=== PATIENT | female | born 1980 | race Caucasian/White ===

== ENCOUNTER → 2023-03-18 13:37 | Outpatient (BNVA) | payer OTHER, SELFPAY | PROVIDERS: PCP Family Medicine; Visit Provider Family Medicine | DX: M25.519 Pain in unspecified shoulder (principal); Z13.6 Encounter for screening for cardiovascular disorders; R53.83 Other fatigue | CPT/HCPCS: 80053; 80061; 84443; 85025; 85651; 86038; 86140; 86200; 86431 ==

== ENCOUNTER 2023-03-30 15:11 | Outpatient (CLI) | payer OTHER, SELFPAY ==
--- NOTE | 2023-03-30 15:22 | MM_ITS ---
WS: [id number] BILATERAL 3D TOMOSYNTHESIS DIGITAL SCREENING MAMMOGRAPHY WITH CAD CLINICAL INFORMATION: SCREEN HISTORY: Screening mammogram. No current complaints. COMPARISON: None. TECHNIQUE: Bilateral CC and MLO views. FINDINGS: The breasts are composed of nodular heterogeneous fibroglandular density tissue, which can limit the detection of small underlying mass lesions. No suspicious mass, asymmetry, calcifications, or archite ctural distortion. No evidence of malignancy. MM/[id number] IMPRESSION: BI-RADS: 2-Benign FOLLOW UP: 1 Year Follow-up Recommend return to annual screening mammography.
== END 2023-03-30 15:12 | disposition home or self-care (01) ==
LOC: RAD 15:15
PROVIDERS: PCP Family Medicine; Visit Provider Family Medicine
DX: Z12.31 Encounter for screening mammogram for malignant neoplasm of breast (principal)
CPT/HCPCS: 77063; 77067

== ENCOUNTER 2023-08-30 11:44 | Outpatient (CLI) | payer OTHER, SELFPAY ==
--- NOTE | 2023-08-30 12:20 | XR_ITS ---
WS: [email or web address] Left shoulder, 2 views, 08/30/2023 Clinical Data: Z79.899 - Other snf (current) drug therapy Comparison: None. Findings: No fractures or dislocations are seen. The AC joint is normal. The adjacent left clavicle, left scapu la and ribs are normal. The soft tissues are unremarkable. Impression: Negative left shoulder.
--- NOTE | 2023-08-30 12:20 | XR_ITS ---
WS: [email or web address] Right shoulder, 2 views, 08/30/2023 Clinical Data: Z79.899 - Other local [employer] (current) drug therapy Comparison: None. Findings: No fractures or dislocations are seen. The AC joint is normal. The adjacent right clavicle, right sca pula and ribs are normal. The soft tissues are unremarkable. Impression: Negative right shoulder.
--- NOTE | 2023-08-30 12:20 | XR_ITS ---
WS: [email or web address] Pelvis, AP view, 08/30/2023 Clinical Data: Z79.899 - Other half-way (current) drug therapy Comparison: None. Findings: No fractures or dislocations are seen. The SI joints and pubic symphysis are intact. The soft tissues are not remarkable. There are acetabular lips bilaterally. Phleboliths are in the true pelvis. Impression: Minimal acetabular lipping of both hips.
[2023-08-30 12:41] LABS: Basophils # 0.1 10^3/uL (0.0-0.1); Basophils % 0.5 %; Eosinophils % 0.1 %; Hematocrit 41.2 % (36-47); Lymphocytes # 1.8 10^3/uL (0.8-4.8); Lymphocytes % 17.4 %; Mean Corpuscular HGB Conc 32.3 g/dL (30-55); Mean Corpuscular Volume 89.8 fl (85-98); Monocytes # 0.3 10^3/uL (0.2-0.9); Monocytes % 2.8 %; Neutrophils # 8.03 10^3/uL (1.8-7.7); Neutrophils % 78.8 %; Nucleated Red Blood Cells % 0 %; Platelet Count 279 10^3/cmm (157-399); Red Blood Count 4.59 10^6/uL (3.85-5.65); Red Cell Distribution Width 12.5 % (12.1-15.1); White Blood Count 10.18 10^3/uL (3.29-11.43)
[2023-08-30 12:47] LABS: Erythrocyte Sedimentation Rate 9 mm/hr (0-15)
[2023-08-30 13:08] LABS: Alanine Aminotransferase 20 U/L (0-33); Alkaline Phosphatase 103 U/L (35-105); Aspartate Amino Transferase 15 U/L (0-32); C Reactive Protein 7.4 mg/L (0.0-4.9); Globulin 2.8 g/dL (1.3-4.6); Glomerular Filtration Rate 90.9 mL/min (90-130); Total Bilirubin 0.4 mg/dL (0.15-1.2); Total Protein 6.8 g/dL (6.6-8.7)
[2023-08-30 13:14] LABS: Hepatitis C Virus Antibody Non-Reactive (Nonreactive)
[2023-08-31 13:24] LABS: COMPLEMENT COMPONENT C3C 173 mg/dL (83-193); COMPLEMENT COMPONENT C4C 33 mg/dL (15-57)
[2023-08-31 14:24] LABS: CENTROMERE B ANTIBODY <1.0 NEG AI (<1.0 NEG); COMPLEMENT, TOTAL (CH50) >60 U/mL (31-60); JO-1 ANTIBODY <1.0 NEG AI (<1.0 NEG); RNP ANTIBODY <1.0 NEG AI (<1.0 NEG); SCL-70 ANTIBODY <1.0 NEG AI (<1.0 NEG); SJOGREN'S ANTIBODY (SS-A) <1.0 NEG AI (<1.0 NEG); SM ANTIBODY <1.0 NEG AI (<1.0 NEG); SS-B <1.0 NEG AI (<1.0 NEG)
[2023-08-31 22:18] LABS: HLA-B27 NEGATIVE (NEGATIVE)
[2023-09-01 10:31] LABS: THYROID PEROXIDASE ANTIBODIES <1 IU/mL (<9)
[2023-09-01 10:42] LABS: ANA SCREEN, IFA NEGATIVE (NEGATIVE)
[2023-09-01 16:09] LABS: Quantiferon Mitogen 8.15 IU/mL; Quantiferon Nil 0.03 IU/mL; Quantiferon Plus TB1 0.01 IU/mL; Quantiferon Plus TB2 0.01 IU/mL; Quantiferon TB Gold NEGATIVE (NEGATIVE)
[2023-09-02 08:13] LABS: Thyroglobulin AB <1 IU/mL (< or = 1)
[2023-09-05 17:15] LABS: DNA AB (DS) CRITHIDIA,IFA NEGATIVE (NEGATIVE)
[2023-09-07 13:49] LABS: 14.3.3 ETA Protein <0.2 ng/mL (<0.2)
== END 2023-08-30 11:45 | disposition home or self-care (01) ==
LOC: LAB 11:45
PROVIDERS: PCP Family Medicine; Visit Provider Internal Medicine Rheumatology
DX: M19.90 Unspecified osteoarthritis, unspecified site (principal); Z79.899 Other long term (current) drug therapy; Z11.1 Encounter for screening for respiratory tuberculosis; R76.8 Other specified abnormal immunological findings in serum; Z11.59 Encounter for screening for other viral diseases; M45.6 Ankylosing spondylitis lumbar region
CPT/HCPCS: 72170; 73030; 80076; 82565; 83520; 85025; 85651; 86140; 86160; 86162; 86235; 86255; 86376; 86480; 86800; 86803; 86812

== ENCOUNTER → 2025-03-12 15:30 | Outpatient (BNVA) | payer OTHER, SELFPAY | PROVIDERS: PCP Family Medicine; Visit Provider Student in an Organized Health Care Education/Training Program | DX: M25.512 Pain in left shoulder (principal); M75.42 Impingement syndrome of left shoulder; M25.511 Pain in right shoulder; G89.29 Other chronic pain | CPT/HCPCS: 73030 ==

== ENCOUNTER 2025-06-12 06:49 | Outpatient (CLI) | payer OTHER, SELFPAY ==
[2025-06-12 07:46] LABS: Alanine Aminotransferase 23 U/L (0-33); Albumin Level 3.7 g/dL (3.5-5.2); Alkaline Phosphatase 84 U/L (35-105); Aspartate Amino Transferase 21 U/L (0-32); Globulin 2.7 g/dL (1.3-4.6); Total Protein 6.4 g/dL (6.6-8.7)
== END 2025-06-12 06:50 | disposition home or self-care (01) ==
LOC: LAB 06:50
PROVIDERS: PCP Family Medicine; Visit Provider Internal Medicine Rheumatology
DX: R74.8 Abnormal levels of other serum enzymes (principal)
CPT/HCPCS: 36415; 80076

== ENCOUNTER 2025-08-14 07:01 | Outpatient (CLI) | payer OTHER, SELFPAY ==
[2025-08-14 07:27] LABS: Hematocrit 41.3 % (36-47); Hemoglobin 13.20 g/dL (11.27-16.99); Mean Corpuscular HGB Conc 32.0 g/dL (30-55); Mean Corpuscular Hemoglobin 28.3 pg (27-33); Mean Corpuscular Volume 88.6 fl (85-98); Nucleated Red Blood Cells % 0 %; Platelet Count 199 10^3/cmm (157-399); Red Blood Count 4.66 10^6/uL (3.85-5.65); White Blood Count 6.03 10^3/uL (3.29-11.43)
[2025-08-14 07:47] LABS: Alanine Aminotransferase 23 U/L (0-33); Albumin Level 4.3 g/dL (3.5-5.2); Alkaline Phosphatase 90 U/L (35-105); Aspartate Amino Transferase 19 U/L (0-32); Globulin 2.7 g/dL (1.3-4.6); Total Protein 7.0 g/dL (6.6-8.7)
== END 2025-08-14 07:02 | disposition home or self-care (01) ==
PROVIDERS: PCP Family Medicine; Visit Provider Internal Medicine Rheumatology
DX: Z79.899 Other long term (current) drug therapy (principal)
CPT/HCPCS: 36415; 80076; 82306; 82565; 85025; 85651; 86140; 86480